=== PATIENT | male | born 1995 ===

== ENCOUNTER 2018-09-22 15:54 | Emergency (ER) | payer SELFPAY ==
--- NOTE | 2018-09-22 17:02 | CT ---
FExam: CT cervical spine without contrast HISTORY: Trauma. Pain. Multiple was fell on top of head while at work this morning. COMPARISON: None FINDINGS: No craniocervical dissociation. Appropriate alignment of the lateral masses of C1 and C2. Intact odon toid process Appropriate alignment of the facets. Straightening of normal cervical lordosis may be due to patient position, muscle spasm or cervical co llar. Soft tissue neck structures: No mass, lymphadenopathy or hematoma. No prevertebral soft tissue swelli ng. Upper mediastinum and lung apices: Unremarkable Central spinal canal: Neural foramina and central spinal canal are patent. Evaluation is limited by t echnique Vertebral bodies: Cervical spine vertebral body height is maintained. No fracture. IMPRESSION: 1. No fracture 2. Straightening of normal cervical lordosis. If there is concern for ligamentous injury, consider M RI
== END 2018-09-22 18:05 | disposition home or self-care (01) ==
LOC: ERS 15:54
DX: S09.90XA Unspecified injury of head, initial encounter (principal); M54.5 Low back pain; M54.2 Cervicalgia; F41.9 Anxiety disorder, unspecified; F17.210 Nicotine dependence, cigarettes, uncomplicated; F17.220 Nicotine dependence, chewing tobacco, uncomplicated; W20.8XXA Other cause of strike by thrown, projected or falling object, initial encounter
CPT/HCPCS: 72125